=== PATIENT | male | born 1935 | race Caucasian/White ===

== ENCOUNTER 2016-06-05 10:31 | Emergency (ER) | payer OTHER ==
[~2016-06-05] VITALS: Ht 165.1 cm; Wt 90.7 kg
--- NOTE | 2016-06-05 10:41 | NUR ---
Patient to bed 8 at this time.
[2016-06-05 10:44] VITALS: BP 155/76
--- NOTE | 2016-06-05 10:46 | NUR ---
80/M presents to ED for evalution of left thumb pain. Pt states "I smashed my finger in a door on ." Pt has hematoma and swelling to left thumb. Pt c/o 3/10 pain, numbness to left thumb. Left thumb appears purple in color, warm to touch, sensation intact. Patient ambulates with a cane, steady gait. Patient denies N/V/D. Denies s/s of UTI. Denies chest pain or SOB. Patient is AAOX4, [place] speaking. Patient denies taking medications for pain prior to arrival. VSS at this time. No visible signs of distress noted. Hx: HTN, DM, heart murmur
[2016-06-05] MEDS ORDERED: NACL 0.9% 1,000 ML IV ONE (11:30)
[2016-06-05] MEDS ORDERED: INSULIN HUMAN REGULAR 100 UNITS/ML 10 ML VIAL IVP ONE (11:30)
--- NOTE | 2016-06-05 13:00 | NUR ---
IV removed, catheter intact and site benign. Applied folded 4x4 gauze and tape to stop bleeding.
[2016-06-05 13:04] VITALS: BP 150/74
--- NOTE | 2016-06-05 13:05 | NUR ---
Patient discharged with v/s stable. Written and verbal after care instructions given and explained. Patient alert, oriented and verbalized understanding of instructions. Ambulatory with steady gait. All questions addressed prior to discharge. ID band removed. Patient advised to follow up with PMD. Rx of keflex, tylenol no 3 given. Patient educated on indication of medication including possible reaction and side effects. Opportunity to ask questions provided and answered.
== END 2016-06-05 13:05 | disposition home or self-care (01) ==
LOC: MED 10:31
DX: S60.112A Contusion of left thumb with damage to nail, initial encounter (principal); I10 Essential (primary) hypertension; E11.65 Type 2 diabetes mellitus with hyperglycemia; E78.00 Pure hypercholesterolemia, unspecified; Z86.73 Personal history of transient ischemic attack (TIA), and cerebral infarction without residual deficits; W23.0XXA Caught, crushed, jammed, or pinched between moving objects, initial encounter; Y93.89 Activity, other specified; Y92.89 Other specified places as the place of occurrence of the external cause; Y99.8 Other external cause status
CPT/HCPCS: 11740; 36415; 73130; 80053; 82948; 85025; 96361; 96374; 99285; J1815; J7030